=== PATIENT | male | born 1985 | race Caucasian/White ===

== ENCOUNTER → 2021-08-17 | Day surgery (SDC) | payer OTHER ==
[~2021-08-17] MED LIST: AMOX TR-K CLV1 EAC4 PO; HYDROCODON-ACE1 EAC2 PO; HYDROCODON-ACE1 EAC6 PO; KEFLEX750 MG PO
[2021-08-17 06:43] LABS: HEMOGLOBIN 15.5 gm/dl (14.0-17.5); RED BLOOD COUNT 4.83 M/UL (4.20-5.50); WHITE BLOOD COUNT 7.5 K/UL (4.5-11.0)
[2021-08-17 07:10] LABS: BUN/CREATININE RATIO 11 (0-10)
== END | disposition home or self-care (01) ==
LOC: OR 05:21
PROVIDERS: Orthopaedic Surgery
DX: S61.012A Laceration without foreign body of left thumb without damage to nail, initial encounter (principal); S62.522A Displaced fracture of distal phalanx of left thumb, initial encounter for closed fracture; F17.210 Nicotine dependence, cigarettes, uncomplicated; Z20.822 Contact with and (suspected) exposure to COVID-19
CPT/HCPCS: 80048; 85025; J0690; J1170; J2001; J2250; J2405; J2704; J3010; J7120; U0002